=== PATIENT | male | born 1930 ===

== ENCOUNTER 2017-10-21 03:11 | Emergency (ER) | payer MEDICARE, OTHER ==
[2017-10-21] MEDS ORDERED: Morphine 4 MG/ML VIAL IVP ONE (04:01)
[2017-10-21] MEDS ORDERED: Labetalol 5 mg/ml Inj 20ML IVP STA (04:01)
[2017-10-21] MEDS ORDERED: Morphine 4 MG/ML VIAL ONE (04:08)
[2017-10-21 04:42] LABS: EOS # 0.1 K/uL (0.0-0.7); EOS % 0.1 % (0.0-4.0); HEMOGLOBIN 11.2 g/dL (12.0-18.0); MEAN CELL VOLUME 96.4 fl (80.0-94.0)
[2017-10-21 04:44] LABS: VENOUS BLOOD GAS PCO2 38 mmHg (40-60); VENOUS BLOOD GAS PO2 70 mm/Hg (30-55); VENOUS BLOOD PH 7.43 (7.32-7.43)
[2017-10-21 04:48] LABS: ALB/GLOB RATIO 1.2 (1.0-2.1); ALBUMIN 4.1 g/dL (3.5-5.0); CALCIUM 11.7 mg/dL (8.4-10.2); GFR AFRICAN-AMERICAN > 60; GFR NON-AFRICAN AMERICAN > 60; LIPASE 99 U/L (23-300)
--- NOTE | 2017-10-21 04:48 | ED PDOC ---
HPI: Abdomen Time Seen by Provider: 10/21/17 03:23 Chief Complaint (Nursing): Abdominal Pain Chief Complaint (Provider): Abdominal Pain History Per: Patient History/Exam Limitations: no limitations Onset/Duration Of Symptoms: Hrs (x2.5) Current Symptoms Are (Timing): Still Present Location Of Pain/Discomfort: Diffuse Associated Symptoms: denies: Fever, Diarrhea Additional Complaint(s): 87 year old male presents to ED with complaints of abdominal pain and vomiting x2.5 hours and has a past medical history of HTN and CLL. Notes diffuse abdominal pain as well as 3 episodes of non-bloody, non-bilious emesis. (-) fever, chest pain, diarrhea, or rectal bleed. Of note, patient was recently hospitalized at [facility] for a non-specific bowel surgery. PCP: Fermin Townsend V Past Medical History Reviewed: Historical Data, Nursing Documentation, Vital Signs Vital Signs: Last Vital Signs Temp 98.0 F 10/21/17 07:34 Pulse 87 10/21/17 07:42 Resp 18 10/21/17 07:34 BP 161/94 H 10/21/17 08:23 Pulse Ox 97 10/21/17 07:34 - Medical History PMH: Gall Bladder Disease, HTN, Hypercholesterolemia, Malignancy (Chronic lymphocytic leukemia) Denies: No Chronic Diseases - Surgical History Surgical History: Cholecystectomy Other surgeries: non-specific bowel surgery - Family History Family History: States: Unknown Family Hx - Living Arrangements Living Arrangements: With Family - Home Medications Home Medications: Ambulatory Orders Medication Instructions Recorded Docusate Sodium [Colace] 100 mg PO BID #30 capsule 10/21/17 oxyCODONE/Acetaminophen [Percocet 1 ea PO Q6 PRN #15 tab 10/21/17 5/325 mg Tab] - Allergies Allergies/Adverse Reactions: Allergies Allergy/AdvReac Type Severity Reaction Status Date / Time No Known Allergies Allergy Verified 10/21/17 03:27 Review of Systems ROS Statement: Except As Marked, All Systems Reviewed And Found Negative Constitutional: Negative for: Fever Cardiovascular: Negative for: Chest Pain Gastrointestinal: Positive for: Vomiting, Abdominal Pain. Negative for: Diarrhea, Other ((-) rectal bleed) Physical Exam - Reviewed Nursing Documentation Reviewed: Yes Vital Signs Reviewed: Yes - Physical Exam Appears: Positive for: Non-toxic, Uncomfortable Skin: Positive for: Normal Color, Warm, Dry Eye Exam: Positive for: Normal appearance ENT: Positive for: Normal ENT Inspection Neck: Positive for: Normal, Painless ROM, Supple Cardiovascular/Chest: Positive for: Regular Rate, Rhythm. Negative for: Murmur Respiratory: Positive for: Normal Breath Sounds. Negative for: Respiratory Distress Gastrointestinal/Abdominal: Positive for: Soft, Tenderness (diffuse tenderness) , Distended. Negative for: Normal Exam Back: Positive for: Normal Inspection Extremity: Positive for: Normal ROM. Negative for: Deformity Neurologic/Psych: Positive for: Alert, Oriented. Negative for: Motor/Sensory Deficits - Laboratory Results Result Diagrams: 10/21/17 04:11 10/21/17 04:11 - ECG O2 Sat by Pulse Oximetry: 97 (RA) Pulse Ox Interpretation: Normal - Progress Re-evaluation Time: 06:40 Condition: Re-examined, Improved Medical Decision Making Medical Decision Makin Initial impression: abdominal pain, vomiting DDx: SBO, volvulus, pancreatitis, appendicitis, mesenteric ischemia Initial plan: * T&S * VBG shock * CTA A/P * EKG * Labs * Lipase * Trop I * PTT/PT * Morphine 4mg IVP * Reglan 10mg IVPB * Trandate 20mg IVP * Re-eval 0635 CT FINDINGS: Lung bases: Atelectasis posterior lungs. Heart: Cardiac enlargement. ABDOMEN: Liver: Small low-attenuation foci in the liver and some of which are due to hepatic cysts. Others are too small to characterize. Hepatic cysts. Gallbladder and bile ducts: Cholecystectomy. No ductal dilation. Pancreas: Unremarkable. No mass. No ductal dilation. Spleen: Unremarkable. No splenomegaly. Adrenals: Unremarkable. No mass. Kidneys and ureters: Unremarkable. No solid mass. No hydronephrosis. Stomach and bowel: Diverticulosis in the colon without evidence of diverticulitis. No obstruction. Appendix: Normal appendix. PELVIS: Bladder: Unremarkable. No mass. Reproductive: Unremarkable as visualized. ABDOMEN and PELVIS: Intraperitoneal space: Small amount of free fluid in the lower abdomen and pelvis. No free air. Bones/joints: Old healed right-sided rib fractures. No dislocation. Soft tissues: Bilateral inguinal hernias containing fat. Vasculature: Atherosclerotic disease. No abdominal aortic aneurysm. Lymph nodes: Partially seen are mildly prominent mediastinal and hilar lymph nodes. There are prominent lymph nodes in the mesentery and retroperitoneum with a conglomerate mass at the mesenteric root. IMPRESSION: Partially seen are mildly prominent mediastinal and hilar lymph nodes. There are prominent lymph nodes in the mesentery and retroperitoneum with a conglomerate mass at the mesenteric root. Findings are consistent with malignancy, most likely due to lymphoma. Scribe Attestation: Documented by Valerie Peralta acting as a scribe Yara Amin MD. Scribe Attestation: All medical record entries made by the Scribe were at my direction and personally dictated by me. I have reviewed the chart and agree that the record accurately reflects my personal performance of the history, physical exam, medical decision making, and the department course for this patient. I have also personally directed, reviewed, and agree with the discharge instructions and disposition. Disposition - Clinical Impression Clinical Impression: Abdominal pain, Lymphoma, Hypertension - Patient ED Disposition Is Patient to be Admitted: No Doctor Will See Patient In The: Office Counseled Patient/Family Regarding: Studies Performed, Diagnosis, Need For Followup - Disposition Referrals: Fermin Townsend MD [Primary Care Provider] - Disposition Time: 07:00 Condition: GOOD Additional Instructions: Follow up with your PCP in 2-3 days. Take your medications as instructed. Return for worsening. Prescriptions: Docusate Sodium [Colace] 100 mg PO BID #30 capsule oxyCODONE/Acetaminophen [Percocet 5/325 mg Tab] 1 ea PO Q6 PRN #15 tab PRN Reason: Pain, Severe (8-10) Instructions: High Blood Pressure in Adults, Lymphoma (DC) Print Language: [id number]
[2017-10-21 04:49] LABS: BASO # 0.1 K/uL (0.0-0.2); BASO % 0.1 % (0.0-2.0); LYMPH # 92.1 K/uL (1.0-4.3); LYMPH % 96.8 % (20.0-40.0); MEAN CORPUSCULAR HGB CONC 31.1 g/dL (33.0-37.0); MEAN PLATELET VOLUME 9.3 fl (7.2-11.7); MONO # 0.9 K/uL (0.0-0.8); NEUT # 1.9 K/uL (1.8-7.0); NRBC % 1.2 % (0.0-0.0); PLATELET COUNT 168 K/uL (130-400); RBC 3.74 Mil/uL (4.40-5.90); RED CELL DISTRIBUTION WIDTH 15.8 % (11.5-14.5)
[2017-10-21 04:53] LABS: WHITE BLOOD COUNT 95.2 K/uL (4.8-10.8)
[2017-10-21] MEDS ORDERED: Iohexol 300 100 ML IJ ONE (04:54)
[2017-10-21] MEDS ORDERED: Sodium Chloride 0.9% 100 ML ONE (04:55)
[2017-10-21 05:44] LABS: PARTIAL THROMBOPLASTIN TIME 18.2 Seconds (25.6-37.1); PROTHROMBIN TIME 10.9 Seconds (9.8-13.1)
[2017-10-21 06:20] LABS: ALT/SGPT 35 U/L (21-72); AST/SGOT 45 U/L (17-59); BLOOD UREA NITROGEN 21 mg/dl (9-20)
[2017-10-21 06:41] VITALS: O2SAT 97
[2017-10-21 07:38] LABS: ANISOCYTOSIS SLIGHT; LYMPHOCYTE 95 % (20-50); MONOCYTE 2 % (0-10); NEUTROPHIL 3 % (42-75); PLATELET ESTIMATE NORMAL (NORMAL); TOTAL CELLS COUNTED 100
[2017-10-21 07:39] LABS: HYPOCHROMIC MODERATE
[2017-10-21 07:42] VITALS: RESP 18; TEMP 98
[2017-10-21 07:43] VITALS: PULSE 87
[2017-10-21 08:24] VITALS: BP 161/94
--- NOTE | 2017-10-21 11:21 | CT ---
ABDOMEN AND PELVIS CT WITH IV CONTRAST ONLY Helical CT of the abdomen pelvis was performed following dynamic intravenous contrast administration (Omnipaque 300, 95 cc). Oral contrast was not administered as per referring physician request. No prior comparison available. Radiation dose: DLP 826.94 mGy-cm. This CT exam was performed using one or more of the following dose reduction techniques: Automated exposure control, adjustment of the mA and/or kV according to patient size, and/or use of iterative reconstruction technique. Images through the visualized lung bases reveal limited bilateral basilar dependent atelectasis, cardiomegaly and a small hiatal hernia with periesophageal lymphadenopathy including 2.8 x 2.5 cm enlarged pre-esophageal lymph node. In the abdomen, the liver is remarkable for a small cyst in the medial right lobe inferiorly with multiple tiny lucencies at the dome too small to characterize. Patient status postcholecystectomy with likely related dilatation of the common hepatic duct up to 9 mm and a proximal common bile duct up to 9 mm as well. Borderline intrahepatic biliary dilatation is also likely related. No radiodense choledocholithiasis. Splenomegaly is identified up to 13.8 cm without focal mass evident. No focal pancreatic lesions appreciated with the right adrenal gland unremarkable. The left adrenal gland is remarkable for a nodule measuring 1.7 x 1.2 cm and 38 Hounsfield units. The pattern is nonspecific and requires follow-up MRI including chemical shift for greater characterization. Metastatic lesion is not completely excluded. No obstructive uropathy is identified bilaterally with several cysts identified involving both kidneys. The dominant cyst the left kidney is exophytic cephalad measuring 5.7 x 4.8 x 6.2 cm. Dominant right renal cyst is seen at the low mid to lower pole medially, measuring 2.7 x 2.9 x 2.6 cm. There multiple small cyst which additional too small to characterize scattered throughout both kidneys which streaky perinephric changes appearing nonspecific bilaterally. A striated nephrogram is not specifically appreciable though evaluation somewhat limited due to the number of tiny cysts scattered through both kidneys. Bilateral potential pyelonephritis not completely excluded. There is a large mantle of confluent lymphadenopathy identified in the central bowel mesentery measure least 14.8 x 8.7 cm surrounding the vascular root of the mesentery and combine with retroperitoneal and additional peritoneal lymphadenopathy including the gastrohepatic ligament, the overall pattern is likely a function of lymphoma. Further clinical correlation is advised including potential tissue diagnosis. The bowel is not appear obstructed but is limited evaluation due lack of oral contrast. Prominent fecal loading is seen throughout the proximal to mid large-bowel including the sigmoid colon somewhat. Left colonic diverticular changes are identified concentrated at the sigmoid colon without definite diverticulitis pattern. Through the pelvis, urinary bladder is thin and smooth walled, appearing mildly distended with mild prostate gland enlargement evident. Developing inguinal hernias contain only mesenteric fat at this time. No definite suspicious bony lesions. IMPRESSION: * Gross mesenteric and retroperitoneal lymphadenopathy in a pattern suspicious for lymphoma. Splenomegaly is also noted. Further clinical correlation advised. * Prior cholecystectomy with likely related limited dilatation of the biliary tree as per above. No choledocholithiasis. * Bilateral renal cysts including multiple tiny lucencies too small to characterize. Streaky perinephric changes are identified bilaterally which are nonspecific. Pyelonephritis is not favored but is not completely excluded with renal parenchyma somewhat obscured by numerous tiny lucencies. * Left colonic diverticulosis without diverticulitis. * Other additional findings as per above.
--- NOTE | 2017-10-22 11:50 | CARD ---
APPROVED REPORT EKG Measurement Heart [id number] <Conclusion> Normal sinus rhythm Left axis deviation Voltage criteria for left ventricular hypertrophy Abnormal ECG
== END 2017-10-21 08:40 | disposition home or self-care (01) ==
LOC: H.ER 03:11
DX: R10.9 Unspecified abdominal pain (principal); C85.90 Non-Hodgkin lymphoma, unspecified, unspecified site; I10 Essential (primary) hypertension; K57.30 Diverticulosis of large intestine without perforation or abscess without bleeding; Z90.49 Acquired absence of other specified parts of digestive tract
CPT/HCPCS: 74177; 80053; 82803; 83690; 84484; 85025; 85610; 85730; 86850; 86900; 93005; 96374; 96375; 99284; J2270; J2765; Q9967